=== PATIENT | male | born 1955 | race Caucasian/White ===

== ENCOUNTER → 2016-09-24 | Outpatient (CLI) | payer OTHER ==
[2015-11-14 20:58] VITALS: BP 146/68
[2016-09-24 09:21] LABS: BASOPHILS % (AUTO) 0.6 % (0.2-1.0); EOSINOPHILS # (AUTO) 0.1 x10^3/uL (0.0-0.2); EOSINOPHILS % (AUTO) 2.6 % (0.9-2.9); HEMATOCRIT 36.7 % (42.0-54.0); HEMOGLOBIN 12.4 g/dL (13.5-18.0); LYMPHOCYTES # (AUTO) 1.3 X10^3/uL (1.3-2.9); LYMPHOCYTES % (AUTO) 23.1 % (21.0-51.0); MEAN CORPUSCULAR HEMOGLOBIN 28.1 pg (27.0-34.0); MEAN CORPUSCULAR HGB CONC 33.8 g/dL (33.0-35.0); MEAN CORPUSCULAR VOLUME 83.1 fL (80.0-100.0); MEAN PLATELET VOLUME 7.6 fL (7.4-11.0); MONOCYTES # (AUTO) 0.4 x10^3/uL (0.3-0.8); MONOCYTES % (AUTO) 7.9 % (0.0-13.0); NEUTROPHILS # (AUTO) 3.6 x10^3/uL (2.2-4.8); NEUTROPHILS % (AUTO) 65.8 % (42.0-75.0); PLATELET COUNT 133 X10^3/uL (150.0-450.0); RED BLOOD COUNT 4.41 X10^6/uL (4.7-6.0); RED CELL DISTRIBUTION WIDTH 14.4 % (11.6-16.5); WHITE BLOOD COUNT 5.5 X10^3/uL (3.6-10.0)
[2016-09-24 09:24] LABS: BLOOD UREA NITROGEN 20 mg/dL (7-18); CHLORIDE 106 mmol/L (98-107); COR NA(FOR HYPERGLY) 141 mmol/L (136-145); CREATININE 1.14 mg/dL (0.70-1.30); GLUCOSE 113 mg/dL (65-99); SODIUM 141 mmol/L (136-145); eGFR BLACK RACES > 60 (>60); eGFR NON BLACK RACES > 60 (>60)
== END ==
LOC: LAB 08:45
PROVIDERS: ATTEND Internal Medicine Cardiovascular Disease
DX: Z79.01 Long term (current) use of anticoagulants (principal); Z51.81 Encounter for therapeutic drug level monitoring
CPT/HCPCS: 36415; 80048; 85025

== ENCOUNTER 2018-05-26 13:48 | Inpatient (IN) ==
--- NOTE | 2018-05-26 14:58 | DR.N/VMALE ---
HPI Time Seen Time Seen by Provider: 05/26/18 14:51 Primary Care Physician Primary Care Physician: CRYSTAL Complaints Chief Complaint:: PT THINKS HE IS GOING ON AND OFF A FIB FOR THE LAST COUPLE OF DAYS. HE STATED THAT STRESS AND C PAP CAUSED THIS TO HAPPEN. HE STATED THAT HE FEELS FINE RIGHT NOW AND NOT LIKE HE IS IN AFIB. Source History Provided: Patient Mode of Arrival Mode of Arrival: Ambulatory Timing Onset of Chief Complaint: 05/26/18 PMH PMH Past Medical History: Yes Past Medical History: COPD, Coronary Artery Disease and [place] Past Medical History Comment: A FIB Past Surgical History: Yes Surgical History: Angioplasty/Stents and Cholecystectomy Family History History of Family Medical Conditions: Yes Family Medical History: [place] Social History Does patient currently use any type of tobacco product: No Have you used tobacco products in the last 12 months: No Type of Tobacco Use: None Does any household member use tobacco: No Alcohol Use: None Do you use any recreational Drugs:: No Lives With: Family Lives Where: Home infectious screening In the last 2 months have you had wt loss of >10#?: NO Have you had fever, night sweats or hemotysis?: No Have you traveled outside the country in the last 6 months?: No Isolation: Standard PE Vital Signs Vitals: Temperature 98.7 F Pulse Rate [Apical] 99 Pulse Rate 105 Respiratory Rate 20 Blood Pressure [Right Arm] 110/70 Blood Pressure [Left Arm] 106/55 Blood Pressure 137/60 O2 Sat by Pulse Oximetry 95 ROR Labs Reviewed Result Diagrams: 05/26/18 15:34 05/26/18 15:34 Laboratory: WBC 7.3 X10^3/uL (3.6-10.0) 05/26/18 15:34 RBC 4.49 X10^6/uL (4.7-6.0) L 05/26/18 15:34 Hgb 13.1 g/dL (13.5-18.0) L 05/26/18 15:34 Hct 37.5 % (42.0-54.0) L 05/26/18 15:34 MCV 83.5 fL (80.0-100.0) 05/26/18 15:34 MCH 29.3 pg (27.0-34.0) 05/26/18 15:34 MCHC 35.1 g/dL (33.0-35.0) H 05/26/18 15:34 RDW 14.7 % (11.6-16.5) 05/26/18 15:34 Plt Count 187 X10^3/uL (150.0-450.0) 05/26/18 15:34 MPV 7.4 fL (7.4-11.0) 05/26/18 15:34 Neut % (Auto) 65.4 % (42.0-75.0) 05/26/18 15:34 Lymph % (Auto) 24.6 % (21.0-51.0) 05/26/18 15:34 [place] % (Auto) 8.5 % (0.0-13.0) 05/26/18 15:34 Eos % (Auto) 1.1 % (0.9-2.9) 05/26/18 15:34 Baso % (Auto) 0.4 % (0.2-1.0) 05/26/18 15:34 Neut # (Auto) 4.8 x10^3/uL (2.2-4.8) 05/26/18 15:34 Lymph # (Auto) 1.8 X10^3/uL (1.3-2.9) 05/26/18 15:34 [place] # (Auto) 0.6 x10^3/uL (0.3-0.8) 05/26/18 15:34 Eos # (Auto) 0.1 x10^3/uL (0.0-0.2) 05/26/18 15:34 Baso # (Auto) 0.0 X10^3/uL (0.0-0.1) 05/26/18 15:34 Absolute Nucleated RBC 0.1 /100WBC 05/26/18 15:34 Sodium 139 mmol/L (136-145) 05/26/18 15:34 Corrected Sodium 139 mmol/L (136-145) 05/26/18 15:34 Potassium 4.5 mmol/L (3.5-5.1) 05/26/18 15:34 Chloride 103 mmol/L (98-107) 05/26/18 15:34 Carbon Dioxide 30.2 mmol/L (21-32) 05/26/18 15:34 BUN 29 mg/dL (7-18) H 05/26/18 15:34 Creatinine 1.24 mg/dL (0.70-1.30) 05/26/18 15:34 Est GFR (MDRD) Af Amer > 60 (>60) 05/26/18 15:34 Est GFR (MDRD) Non-Af > 60 (>60) 05/26/18 15:34 Glucose 112 mg/dL (65-99) H 05/26/18 15:34 Lactic Acid 0.7 mmol/L (0.4-2.0) 05/26/18 18:12 Calcium 9.2 mg/dL (8.5-10.1) 05/26/18 15:34 Corrected Calcium TNP 05/26/18 15:34 Magnesium 1.9 mg/dL (1.7-2.9) 05/26/18 15:34 Total Bilirubin 0.70 mg/dL (0.2-1.0) 05/26/18 15:34 AST 13 Units/L (15-37) L 05/26/18 15:34 ALT 25 Units/L (12-78) 05/26/18 15:34 Alkaline Phosphatase 50 Units/L (46-116) 05/26/18 15:34 Creatine Kinase 82 Units/L (39-308) 05/26/18 15:34 CK-MB (CK-2) 1.9 ng/mL (0-4.0) 05/26/18 15:34 CK/CKMB % Calc 2.3 % (<4) 05/26/18 15:34 Troponin I < 0.02 ng/mL (0-1.5) 05/26/18 15:34 Total Protein 6.6 g/dL (6.4-8.2) 05/26/18 15:34 Albumin 3.7 g/dL (3.4-5.0) 05/26/18 15:34 Globulin 2.9 g/dL (2.5-4.5) 05/26/18 15:34 Albumin/Globulin Ratio 1.3 Ratio (1.1-2.1) 05/26/18 15:34
[2018-05-26 15:43] LABS: BASOPHILS % (AUTO) 0.4 % (0.2-1.0); EOSINOPHILS # (AUTO) 0.1 x10^3/uL (0.0-0.2); EOSINOPHILS % (AUTO) 1.1 % (0.9-2.9); HEMATOCRIT 37.5 % (42.0-54.0); HEMOGLOBIN 13.1 g/dL (13.5-18.0); LYMPHOCYTES # (AUTO) 1.8 X10^3/uL (1.3-2.9); LYMPHOCYTES % (AUTO) 24.6 % (21.0-51.0); MEAN CORPUSCULAR HEMOGLOBIN 29.3 pg (27.0-34.0); MEAN CORPUSCULAR HGB CONC 35.1 g/dL (33.0-35.0); MEAN CORPUSCULAR VOLUME 83.5 fL (80.0-100.0); MEAN PLATELET VOLUME 7.4 fL (7.4-11.0); MONOCYTES # (AUTO) 0.6 x10^3/uL (0.3-0.8); MONOCYTES % (AUTO) 8.5 % (0.0-13.0); NEUTROPHILS # (AUTO) 4.8 x10^3/uL (2.2-4.8); NEUTROPHILS % (AUTO) 65.4 % (42.0-75.0); PLATELET COUNT 187 X10^3/uL (150.0-450.0); RED BLOOD COUNT 4.49 X10^6/uL (4.7-6.0); RED CELL DISTRIBUTION WIDTH 14.7 % (11.6-16.5); WHITE BLOOD COUNT 7.3 X10^3/uL (3.6-10.0)
--- NOTE | 2018-05-26 15:46 | RAD ---
Exam: Portable chest History: 62-year-old male with atrial fibrillation. Comparison: Previous chest radiograph from 10/29/2013 Findings: Generalized cardiomegaly is seen. Mild vascular prominence is noted as well. Cardiac pacer is in place. Patchy opacity at the right base and lateral aspect of the right mid lung may represent developing infiltrates. Left basilar atelectasis/infiltrate is seen as well. No significant effusion on either side. Bony thorax is unremarkable. Impression: 1. Cardiomegaly with mild vascular prominence. 2. Possible right basilar and right lateral mid lung infiltrates. 3. Left basilar atelectasis/infiltrate noted as well Reported By:
[2018-05-26 16:10] LABS: BLOOD UREA NITROGEN 29 mg/dL (7-18); CALCIUM 9.2 mg/dL (8.5-10.1); CARBON DIOXIDE 30.2 mmol/L (21-32); CHLORIDE 103 mmol/L (98-107); COR NA(FOR HYPERGLY) 139 mmol/L (136-145); CREATININE 1.24 mg/dL (0.70-1.30); SODIUM 139 mmol/L (136-145); TROPONIN I < 0.02 ng/mL (0-1.5); eGFR NON BLACK RACES > 60 (>60)
[2018-05-26 16:14] LABS: ALANINE AMINOTRANSFERASE 25 Units/L (12-78); ALBUMIN 3.7 g/dL (3.4-5.0); ALKALINE PHOSPHATASE 50 Units/L (46-116); ASPARTATE AMINO TRANSFERASE 13 Units/L (15-37); CKMB % 2.3 % (<4); CREATINE KINASE 82 Units/L (39-308); CREATINE KINASE MB 1.9 ng/mL (0-4.0); MAGNESIUM 1.9 mg/dL (1.7-2.9); TOTAL PROTEIN 6.6 g/dL (6.4-8.2)
[2018-05-26] MEDS ORDERED: ROCEPHIN VIAL 1 GRAM IVP ONE (17:59)
[2018-05-26] MEDS ORDERED: SALINE 3% 15 ML NEB TX NEB ONE (18:00)
[2018-05-26] MEDS ORDERED: ROCEPHIN VIAL 1 GRAM ONE (18:06)
[2018-05-26] MEDS ORDERED: SALINE 3% 15 ML NEB TX ONE (18:06)
[2018-05-26] MEDS ORDERED: NS 1000 ML 1,000 ML ONE (19:59)
[2018-05-26] MEDS: NS 1000 ML 1,000 ML IV SCH (20:07)
[2018-05-26] MEDS ORDERED: NORCO 10/325 TAB PO PRN (20:45)
[2018-05-26 23:43] LABS: CKMB % 2.5 % (<4); CREATINE KINASE 63 Units/L (39-308); CREATINE KINASE MB 1.6 ng/mL (0-4.0); TROPONIN I < 0.02 ng/mL (0-1.5)
[2018-05-27] MEDS: XOPENEX 1.25 MG/3 ML NEBULE NEB SCH ×5 (00:03→17:44)
[2018-05-27 05:21] LABS: BASOPHILS % (AUTO) 0.4 % (0.2-1.0); EOSINOPHILS # (AUTO) 0.1 x10^3/uL (0.0-0.2); EOSINOPHILS % (AUTO) 1.2 % (0.9-2.9); HEMATOCRIT 36.4 % (42.0-54.0); HEMOGLOBIN 12.8 g/dL (13.5-18.0); LYMPHOCYTES # (AUTO) 2.3 X10^3/uL (1.3-2.9); LYMPHOCYTES % (AUTO) 29.8 % (21.0-51.0); MEAN CORPUSCULAR HEMOGLOBIN 29.5 pg (27.0-34.0); MEAN CORPUSCULAR HGB CONC 35.1 g/dL (33.0-35.0); MEAN PLATELET VOLUME 7.9 fL (7.4-11.0); MONOCYTES # (AUTO) 0.7 x10^3/uL (0.3-0.8); MONOCYTES % (AUTO) 9.3 % (0.0-13.0); NEUTROPHILS # (AUTO) 4.6 x10^3/uL (2.2-4.8); NEUTROPHILS % (AUTO) 59.3 % (42.0-75.0); PLATELET COUNT 183 X10^3/uL (150.0-450.0); RED BLOOD COUNT 4.33 X10^6/uL (4.7-6.0); RED CELL DISTRIBUTION WIDTH 14.7 % (11.6-16.5); WHITE BLOOD COUNT 7.7 X10^3/uL (3.6-10.0)
[2018-05-27 05:38] LABS: ALANINE AMINOTRANSFERASE 21 Units/L (12-78); ALBUMIN 3.4 g/dL (3.4-5.0); ALKALINE PHOSPHATASE 48 Units/L (46-116); ASPARTATE AMINO TRANSFERASE 13 Units/L (15-37); BLOOD UREA NITROGEN 22 mg/dL (7-18); CALCIUM 8.7 mg/dL (8.5-10.1); CHLORIDE 104 mmol/L (98-107); COR NA(FOR HYPERGLY) 141 mmol/L (136-145); CREATININE 1.01 mg/dL (0.70-1.30); SODIUM 140 mmol/L (136-145); TOTAL PROTEIN 6.1 g/dL (6.4-8.2); eGFR NON BLACK RACES > 60 (>60)
[2018-05-27 06:00] LABS: CKMB % 2.5 % (<4); CREATINE KINASE 53 Units/L (39-308); CREATINE KINASE MB 1.3 ng/mL (0-4.0); TROPONIN I < 0.02 ng/mL (0-1.5)
[2018-05-27] MEDS: ROCEPHIN VIAL 1 GRAM IVP SCH (08:44)
--- NOTE | 2018-05-27 09:56 | RAD ---
Examination: PA chest with abdomen series, four views History: Pain Comparison reference: Abdomen CT 11/04/2017 Findings: Chest exam demonstrates cardiomegaly with pacemaker and no evidence for pulmonary consolidation or subdiaphragmatic air. Supine and upright views of abdomen demonstrate nonobstructive colon distention. No small bowel dilatation is noted and there is no evidence for mass or ascites. Right upper quadrant surgical clips consistent with cholecystectomy. Impression: Mild nonobstructive colon distention. Essentially negative otherwise. Reported By:
[2018-05-27] MEDS: ROBITUSSIN DM PO SCH ×4 (11:06→20:57)
[2018-05-27] MEDS: ZITHROMAX INJ 500 MG VIAL 500 MG in NS 250 ML IV 250 ML IV SCH ×2 (11:07→11:13)
[2018-05-27] MEDS: BENTYL CAP 10 MG PO SCH ×3 (11:07→20:57)
[2018-05-27] MEDS: PROTONIX INJ 40 MG VIAL IVP SCH (11:07)
[2018-05-27] MEDS: MUCOMYST 20% 200 MG/ML NEB SCH ×3 (11:27→17:44)
--- NOTE | 2018-05-27 14:50 | DR.H&P ---
H&P - History & Physical for Day of: H&P Date: 05/26/18 - Chief Complaint Chief Complaint: "AFIB" N/V - History of Present Illness History of Present Illness: 62 WM ER ADMISSION WITH CO " GOING INTO AFIB". PT STATES HE CAN FELT PALPITATION LIKE HE IS IN AFIB. PT HAS PMH OF HTN. PT HAD CXR ON ADMISSION WITH FINDINGS OF PNEUMONIA. PT STATES HE HAD CONGESTION ONE WEEK AGO AND HAD ROCEPHIN INJECTION X 1. PT CO UPPER ABDOMINAL PAIN WITH N/V. PT ADMITTED FOR SERIAL CE AND TREATMENT OF PNEUMONIA. - Past Medical History Past Medical History: [place], Coronary Artery Disease, COPD - Past Surgical History Surgical History: Angioplasty/Stents, Cholecystectomy - Family History Family Medical History: [place] - Social History Does patient currently use any type of tobacco product: No Have you used tobacco products in the last 12 months: No Type of Tobacco Use: Cigarettes How many years tobacco product used: 35 Does any household member use tobacco: No Alcohol Use: None Drug Use: None - Medications Home Medications: prednisone Allergy (Verified 05/26/18 15:30) CONTINUE taking the following medications bupropion HCl 300 mg PO DAILY 05/26/18 [History] clonazepam 1 tab PO BID 05/26/18 [History] dabigatran etexilate [Pradaxa] 1 tab PO BID 05/26/18 [History] dicyclomine 1 tab PO TID PRN 05/26/18 [History] ferrous sulfate [iron] 65 mg PO DAILY 05/26/18 [History] fluticasone 1 spray INTRANASAL BID 05/26/18 [History] hydrocodone-acetaminophen 1 tab PO QID PRN 05/26/18 [History] lisinopril 1 tab PO BID 05/26/18 [History] meclizine 1 tab PO TID PRN 05/26/18 [History] morphine 1 tab PO BID 05/26/18 [History] nitroglycerin [Nitrostat] 1 tab SUBLINGUAL DIRECTED 05/26/18 [History] omega 6-orh-ddw-fish oil [Fish Oil] 1,000 mg PO BID 05/26/18 [History] sotalol 1 tab PO BID 05/26/18 [History] - Review of Systems Constitutional: No Symptoms Reported Eyes: No Symptoms Reported ENT: No Symptoms Reported Respiratory: Cough Cardiovascular: Chest Pain, Palpitations Gastrointestinal: Nausea, Vomiting Genitourinary: No Symptoms Reported Musculoskeletal: No Symptoms Reported Skin: No Symptoms Reported Neurological: No Symptoms Reported - Physical Exam Vital Signs: Temperature 98.8 F Pulse Rate [Apical] 98 Pulse Rate 71 Respiratory Rate 20 Blood Pressure [Right Arm] 103/59 Blood Pressure [Left Arm] 106/55 Blood Pressure 137/60 O2 Sat by Pulse Oximetry 100 Oriented: Normal Eyes: Normal Ear: Normal Nose: Normal Throat: Normal Respiratory: RLL Diminished, LLL Diminished Cardiovascular: Normal. negative: Murmur, Edema : Normal Auscultation: Bowel Sounds: Normal Palpation: Normal Tenderness: Epigastric, Mild Skin: Normal Musculoskeletal: Normal Psychiatric: Normal Speech Pattern: Clear, Appropriate - Assessment/Plan (1) Pneumonia Status: Acute Plan: ADMIT, SPUTUM CULTURE. IV ATBX, RESP THERAPY, GENTLE HYDRATION. SUPPLEMENTAL O2. VERIFY HOME MEDICATION. ABD SERIES, CXR ON ADMISSION. SERIAL CE AND EKG, BP CONTROL (2) Abdominal pain Status: Acute (3) Cardiac defibrillator in place Status: Chronic (4) Hypertension Status: Chronic (5) History of atrial fibrillation Status: Chronic - Allergies Allergies/Adverse Reactions: Allergies Allergy/AdvReac Type Severity Reaction Status Date / Time prednisone Allergy Verified 05/26/18 15:30
[2018-05-27] MEDS: NS 1000 ML 1,000 ML IV SCH (21:22)
[2018-05-28] MEDS: MUCOMYST 20% 200 MG/ML NEB SCH ×5 (00:29→17:03)
[2018-05-28] MEDS: XOPENEX 1.25 MG/3 ML NEBULE NEB SCH ×5 (00:29→17:03)
[2018-05-28] MEDS: BENTYL CAP 10 MG PO SCH ×3 (04:29→15:28)
[2018-05-28] MEDS: NS 1000 ML 1,000 ML IV SCH ×3 (04:29→11:57)
[2018-05-28 05:16] LABS: BASOPHILS % (AUTO) 0.6 % (0.2-1.0); EOSINOPHILS # (AUTO) 0.1 x10^3/uL (0.0-0.2); EOSINOPHILS % (AUTO) 1.7 % (0.9-2.9); HEMATOCRIT 35.5 % (42.0-54.0); HEMOGLOBIN 12.3 g/dL (13.5-18.0); LYMPHOCYTES % (AUTO) 33.5 % (21.0-51.0); MEAN CORPUSCULAR HEMOGLOBIN 29.3 pg (27.0-34.0); MEAN CORPUSCULAR HGB CONC 34.6 g/dL (33.0-35.0); MEAN CORPUSCULAR VOLUME 84.7 fL (80.0-100.0); MEAN PLATELET VOLUME 7.9 fL (7.4-11.0); MONOCYTES # (AUTO) 0.5 x10^3/uL (0.3-0.8); MONOCYTES % (AUTO) 8.7 % (0.0-13.0); NEUTROPHILS # (AUTO) 3.3 x10^3/uL (2.2-4.8); NEUTROPHILS % (AUTO) 55.5 % (42.0-75.0); PLATELET COUNT 152 X10^3/uL (150.0-450.0); RED BLOOD COUNT 4.19 X10^6/uL (4.7-6.0); RED CELL DISTRIBUTION WIDTH 14.8 % (11.6-16.5); WHITE BLOOD COUNT 5.9 X10^3/uL (3.6-10.0)
[2018-05-28 05:22] LABS: ALANINE AMINOTRANSFERASE 19 Units/L (12-78); ALBUMIN 3.2 g/dL (3.4-5.0); ALKALINE PHOSPHATASE 42 Units/L (46-116); ASPARTATE AMINO TRANSFERASE 13 Units/L (15-37); BLOOD UREA NITROGEN 20 mg/dL (7-18); CALCIUM 8.6 mg/dL (8.5-10.1); CARBON DIOXIDE 26.7 mmol/L (21-32); CHLORIDE 106 mmol/L (98-107); COR CA(FOR HYPOALB) 9.2 mg/dL (8.5-10.1); CREATININE 1.06 mg/dL (0.70-1.30); SODIUM 141 mmol/L (136-145); TOTAL PROTEIN 5.8 g/dL (6.4-8.2); eGFR NON BLACK RACES > 60 (>60)
--- NOTE | 2018-05-28 05:52 | RAD ---
Examination: AP chest History: Pneumonia chest pain Comparison 05/26/2018 Findings: Continued moderate cardiomegaly with stable position of pacing device. There is no evidence for localized pulmonary, hilar or pleural disease. Impression: Cardiac enlargement. No acute pulmonary or pleural lesion demonstrated. Reported By:
[2018-05-28 08:09] VITALS: BMI 34.7
[2018-05-28] MEDS: ROBITUSSIN DM PO SCH ×3 (08:11→17:13)
[2018-05-28] MEDS: ZITHROMAX INJ 500 MG VIAL 500 MG in NS 250 ML IV 250 ML IV SCH (08:12)
[2018-05-28] MEDS: PROTONIX INJ 40 MG VIAL IVP SCH (08:13)
[2018-05-28] MEDS: ROCEPHIN VIAL 1 GRAM IVP SCH (08:13)
[2018-05-28] MEDS ORDERED: COLACE CAP 100 MG PO SCH (09:00)
[2018-05-28] MEDS ORDERED: MILK OF MAGNESIA PO SCH (09:00)
[2018-05-28] MEDS ORDERED: SOTALOL PO SCH (13:45)
[2018-05-28] MEDS ORDERED: PRADAXA PO SCH (14:00)
[2018-05-28 18:05] VITALS: BP 128/59
[2018-05-28] MEDS ORDERED: BETAPACE AF PO SCH (21:00)
== END 2018-05-28 19:10 | disposition short-term general hospital (02) | DRG 308 ==
LOC: ER 13:59 → MED/SURG 19:29
PROVIDERS: ADMIT Internal Medicine; ATTEND Internal Medicine
DX: R94.31 Abnormal electrocardiogram [ECG] [EKG]; I48.91 Unspecified atrial fibrillation; E11.65 Type 2 diabetes mellitus with hyperglycemia; Z95.0 Presence of cardiac pacemaker; R10.84 Generalized abdominal pain; J18.9 Pneumonia, unspecified organism; R07.89 Other chest pain; I51.7 Cardiomegaly; E78.2 Mixed hyperlipidemia
CPT/HCPCS: 36415; 71010; 71045; 74022; 80053; 82550; 82553; 83605; 83735; 84484; 85025; 87040; 87070; 87205; 93005; 94640; 94760; 96365; 96374; 99282; 99284; A4222; C9113; J0456; J0696; J7030; J7050; J7608

== ENCOUNTER 2018-12-02 21:50 | Observation (INO) ==
[2018-12-02 22:46] VITALS: BMI 34.0
[2018-12-02] MEDS ORDERED: PEPCID 20 MG IV PREMIX* 20 MG/50 ML BAG IV ONE (23:25)
[2018-12-02] MEDS ORDERED: DEMEROL INJ IVP ONE (23:25)
[2018-12-02] MEDS ORDERED: ZOFRAN INJ 4 MG VIAL IVP ONE (23:25)
--- NOTE | 2018-12-02 23:29 | DR.ABDMALE ---
HPI Time seen Time Seen by Provider: 12/02/18 23:24 PCP Primary Care Physician: Artur Damico Chief Complaint:: "Serious Stomach Pain." Self Treatment fo Chief Complaint: Taking medications as ordered Mode of arrival Mode of Arrival: Ambulatory Timing Onset of Chief Complaint: 12/02/18 PMH PMH Past Medical History: Yes Past Medical History: COPD, Coronary Artery Disease and [place] Past Surgical History: Yes Surgical History: Angioplasty/Stents and Cholecystectomy Past Surgical History Comment: Hernia repair Family History History of Family Medical Conditions: Yes Family Medical History: [place] Social History Does patient currently use any type of tobacco product: No Have you used tobacco products in the last 12 months: No Type of Tobacco Use: None Does any household member use tobacco: No Do you use any recreational Drugs:: No Lives Where: Home infectious screening In the last 2 months have you had wt loss of >10#?: NO Have you had fever, night sweats or hemotysis?: No Have you traveled outside the country in the last 6 months?: No Isolation: Standard ROS Review of Systems Constitutional: No Symptoms Reported Eyes: No Symptoms Reported ENTM: No Symptoms Reported Respiratoy: No Symptoms Reported Cardiovascular: No Symptoms Reported Gastrointestinal/Abdominal: No Symptoms Reported Genitourinary: No Symptoms Reported Neurological: No Symptoms Reported Musculoskeletal: No Symptoms Reported Integumentary: No Symptoms Reported Hematologic/Lymphatic: No Symptoms Reported Endocrine: No Symptoms Reported Psychiatric: No Symptoms Reported All Other Systems: Reviewed and Negative PE Vital Signs Vital Signs: Temp Pulse Pulse Resp BP BP BP 12/03/18 03:21 20 12/03/18 01:34 62 15 136/62 12/03/18 00:34 64 24 157/70 12/03/18 00:15 20 12/02/18 23:45 24 12/02/18 23:34 98.9 F 61 15 135/65 12/02/18 22:34 98.4 F 64 28 H 148/67 132/79 07/05/18 12:20 117/59 05/28/18 16:00 128/59 10/30/13 10:00 106/55 Pulse Ox 12/03/18 03:21 12/03/18 01:34 97 12/03/18 00:34 95 12/03/18 00:15 12/02/18 23:45 12/02/18 23:34 96 12/02/18 22:34 96 07/05/18 12:20 05/28/18 16:00 10/30/13 10:00 General Limitations: No Limitations General Appearance: Alert and In No Apparent Distress Head Head Exam: Normal Inspection Eyes Eye exam: Normal Appearance ENT ENT Exam: Normal Exam Neck Neck Exam: Normal Inspection Chest Chest Inspection: Normal Inspection Respiratory Respiratory Exam: Normal Lung Sounds Bilat Cardiovascular Cardiovascular Exam: Regular Rate and Normal Rhythm Abdominal Exam Abdominal Exam: Normal Inspection and Normal Bowel Sounds Rectal Rectal Exam: Deferred Back Back Exam: Normal Inspection Extremeties Extremities Exam: Normal Inspection Exam: Male: Deferred Neurologic Neurological Exam: Alert and Oriented X3 Psychiatric Psychiatric Exam: Normal Affect and Normal Mood Skin Skin Exam: Warm, Dry, Intact and Normal Color ROR Labs Reviewed Result Diagrams: 12/02/18 23:30 12/02/18 23:30 Laboratory: WBC 14.2 X10^3/uL (3.6-10.0) H 12/02/18 23:30 RBC 4.99 X10^6/uL (4.7-6.0) 12/02/18 23:30 Hgb 14.4 g/dL (13.5-18.0) 12/02/18 23:30 Hct 42.7 % (42.0-54.0) 12/02/18 23:30 MCV 85.6 fL (80.0-100.0) 12/02/18 23:30 MCH 28.8 pg (27.0-34.0) 12/02/18 23:30 MCHC 33.6 g/dL (33.0-35.0) 12/02/18 23:30 RDW 14.8 % (11.6-16.5) 12/02/18 23:30 Plt Count 188 X10^3/uL (150.0-450.0) 12/02/18 23:30 MPV 7.4 fL (7.4-11.0) 12/02/18 23:30 Neut % (Auto) 88.2 % (42.0-75.0) H 12/02/18 23:30 Lymph % (Auto) 6.8 % (21.0-51.0) L 12/02/18 23:30 [place] % (Auto) 4.5 % (0.0-13.0) 12/02/18 23:30 Eos % (Auto) 0.1 % (0.9-2.9) L 12/02/18 23:30 Baso % (Auto) 0.4 % (0.2-1.0) 12/02/18 23:30 Neut # (Auto) 12.5 x10^3/uL (2.2-4.8) H 12/02/18 23:30 Lymph # (Auto) 1.0 X10^3/uL (1.3-2.9) L 12/02/18 23:30 [place] # (Auto) 0.6 x10^3/uL (0.3-0.8) 12/02/18 23:30 Eos # (Auto) 0.0 x10^3/uL (0.0-0.2) 12/02/18 23:30 Baso # (Auto) 0.1 X10^3/uL (0.0-0.1) 12/02/18 23:30 Absolute Nucleated RBC 0.1 /100WBC 12/02/18 23:30 Sodium 137 mmol/L (136-145) 12/02/18 23:30 Corrected Sodium 138 mmol/L (136-145) 12/02/18 23:30 Potassium 4.7 mmol/L (3.5-5.1) 12/02/18 23:30 Chloride 99 mmol/L (98-107) 12/02/18 23:30 Carbon Dioxide 29.6 mmol/L (21-32) 12/02/18 23:30 BUN 23 mg/dL (7-18) H 12/02/18 23:30 Creatinine 1.21 mg/dL (0.70-1.30) 12/02/18 23:30 Est GFR (MDRD) Af Amer > 60 (>60) 12/02/18 23:30 Est GFR (MDRD) Non-Af > 60 (>60) 12/02/18 23:30 Glucose 138 mg/dL (65-99) H 12/02/18 23:30 Calcium 9.0 mg/dL (8.5-10.1) 12/02/18 23:30 Corrected Calcium TNP 12/02/18 23:30 Total Bilirubin 1.40 mg/dL (0.2-1.0) H 12/02/18 23:30 AST 20 Units/L (15-37) 12/02/18 23:30 ALT 21 Units/L (12-78) 12/02/18 23:30 Alkaline Phosphatase 57 Units/L (46-116) 12/02/18 23:30 Total Protein 7.8 g/dL (6.4-8.2) 12/02/18 23:30 Albumin 4.4 g/dL (3.4-5.0) 12/02/18 23:30 Globulin 3.4 g/dL (2.5-4.5) 12/02/18 23:30 Albumin/Globulin Ratio 1.3 Ratio (1.1-2.1) 12/02/18 23:30 Amylase 33 Units/L (25-115) 12/02/18 23:30 Lipase 105 Units/L (73-393) 12/02/18 23:30 Specimen Type Clean catch urine 12/03/18 02:08 Urine Color Dark yellow (YELLOW) 12/03/18 02:08 Urine Appearance Clear (CLEAR) 12/03/18 02:08 Urine pH 5.0 (5.0 - 8.0) 12/03/18 02:08 Ur Specific [place] 1.020 (1.000-1.030) 12/03/18 02:08 Urine Protein 1+ (NEGATIVE) 12/03/18 02:08 Urine Glucose (UA) Negative (NEGATIVE) 12/03/18 02:08 Urine Ketones Negative (NEGATIVE) 12/03/18 02:08 Urine Occult Blood 1+ (NEGATIVE) 12/03/18 02:08 Urine Nitrite Negative (NEGATIVE) 12/03/18 02:08 Urine Bilirubin Negative (NEGATIVE) 12/03/18 02:08 Urine Urobilinogen 1+ (NORMAL) 12/03/18 02:08 Ur Leukocyte Esterase Negative (NEGATIVE) 12/03/18 02:08 Urine RBC 0-2 /HPF (NONE SEEN) 12/03/18 02:08 Urine WBC None seen /HPF (NONE SEEN) 12/03/18 02:08 Ur Squamous Epith Cells Negative /HPF (NEGATIVE) 12/03/18 02:08 Urine Bacteria Negative /HPF (NEGATIVE) 12/03/18 02:08 Urine Mucus Rare /HPF (NEGATIVE) 12/03/18 02:08 Ur Culture Indicated? No/not indicated 12/03/18 02:08 Opioid Opioid Risk Tool Total: 0 Total Score Risk Category: Low Risk Copyright: Praneeth GOVEA predicting aberrant behaviors
[2018-12-02] MEDS ORDERED: NS 1000 ML 1,000 ML ONE (23:39)
[2018-12-02] MEDS ORDERED: PEPCID 20 MG IV PREMIX* 20 MG/50 ML BAG ONE (23:41)
[2018-12-02] MEDS ORDERED: ZOFRAN INJ 4 MG VIAL ONE (23:42)
[2018-12-02] MEDS ORDERED: DEMEROL INJ ONE (23:43)
[2018-12-02 23:44] LABS: BASOPHILS # (AUTO) 0.1 X10^3/uL (0.0-0.1); BASOPHILS % (AUTO) 0.4 % (0.2-1.0); EOSINOPHILS % (AUTO) 0.1 % (0.9-2.9); HEMATOCRIT 42.7 % (42.0-54.0); HEMOGLOBIN 14.4 g/dL (13.5-18.0); LYMPHOCYTES % (AUTO) 6.8 % (21.0-51.0); MEAN CORPUSCULAR HEMOGLOBIN 28.8 pg (27.0-34.0); MEAN CORPUSCULAR HGB CONC 33.6 g/dL (33.0-35.0); MEAN CORPUSCULAR VOLUME 85.6 fL (80.0-100.0); MEAN PLATELET VOLUME 7.4 fL (7.4-11.0); MONOCYTES # (AUTO) 0.6 x10^3/uL (0.3-0.8); MONOCYTES % (AUTO) 4.5 % (0.0-13.0); NEUTROPHILS # (AUTO) 12.5 x10^3/uL (2.2-4.8); NEUTROPHILS % (AUTO) 88.2 % (42.0-75.0); PLATELET COUNT 188 X10^3/uL (150.0-450.0); RED BLOOD COUNT 4.99 X10^6/uL (4.7-6.0); RED CELL DISTRIBUTION WIDTH 14.8 % (11.6-16.5); WHITE BLOOD COUNT 14.2 X10^3/uL (3.6-10.0)
[2018-12-02] MEDS ORDERED: NS 1000 ML 1,000 ML IV SCH (23:45)
[2018-12-02 23:51] LABS: ALANINE AMINOTRANSFERASE 21 Units/L (12-78); ALBUMIN 4.4 g/dL (3.4-5.0); ALKALINE PHOSPHATASE 57 Units/L (46-116); AMYLASE 33 Units/L (25-115); ASPARTATE AMINO TRANSFERASE 20 Units/L (15-37); BLOOD UREA NITROGEN 23 mg/dL (7-18); CARBON DIOXIDE 29.6 mmol/L (21-32); CHLORIDE 99 mmol/L (98-107); COR NA(FOR HYPERGLY) 138 mmol/L (136-145); CREATININE 1.21 mg/dL (0.70-1.30); LIPASE 105 Units/L (73-393); SODIUM 137 mmol/L (136-145); TOTAL PROTEIN 7.8 g/dL (6.4-8.2); eGFR NON BLACK RACES > 60 (>60)
[2018-12-03 02:15] LABS: BILIRUBIN,URINE NEGATIVE (NEGATIVE); BLOOD/HEMOGLOBIN,URINE 1+ (NEGATIVE); GLUCOSE, URINE NEGATIVE (NEGATIVE); KETONES,URINE NEGATIVE (NEGATIVE); LEUKOCYTE ESTERASE ,URINE NEGATIVE (NEGATIVE); NITRITES,URINE NEGATIVE (NEGATIVE); PROTEIN,URINE 1+ (NEGATIVE); UROBILINOGEN,URINE 1+ (NORMAL)
[2018-12-03 02:24] LABS: APPEARANCE,URINE CLEAR (CLEAR); BACTERIA,URINE NEGATIVE /HPF (NEGATIVE); COLOR,URINE DARK YELLOW (YELLOW); MUCUS,URINE RARE /HPF (NEGATIVE); RBC,URINE 0-2 /HPF (NONE SEEN); SQUAMOUS EPITHELIAL CELL,UR NEGATIVE /HPF (NEGATIVE)
[2018-12-03] MEDS ORDERED: ZOSYN VIAL 3.375 GRAMS 3.375 G in NS 100 ML IV + SPIKE MINIBAG* 100 ML IV ONE (03:04)
[2018-12-03] MEDS ORDERED: NS 100 ML IV + SPIKE MINIBAG* 100 ML ONE ×2 (03:08→15:55)
[2018-12-03] MEDS ORDERED: ZOSYN VIAL 3.375 GRAMS IV ONE ×2 (03:08→15:55)
[2018-12-03] MEDS ORDERED: DEMEROL INJ IVP ONE (03:17)
[2018-12-03] MEDS ORDERED: DEMEROL INJ ONE (03:18)
[2018-12-03] MEDS ORDERED: ZOFRAN INJ 4 MG VIAL IVP ONE (03:47)
[2018-12-03] MEDS ORDERED: MORPHINE SULFATE INJ 2 MG INJ IVP PRN (04:24)
[2018-12-03 04:56] LABS: BASOPHILS # (AUTO) 0.1 X10^3/uL (0.0-0.1); BASOPHILS % (AUTO) 0.4 % (0.2-1.0); EOSINOPHILS % (AUTO) 0.1 % (0.9-2.9); HEMATOCRIT 40.5 % (42.0-54.0); HEMOGLOBIN 13.7 g/dL (13.5-18.0); LYMPHOCYTES # (AUTO) 1.2 X10^3/uL (1.3-2.9); LYMPHOCYTES % (AUTO) 8.1 % (21.0-51.0); MEAN CORPUSCULAR HGB CONC 33.9 g/dL (33.0-35.0); MEAN CORPUSCULAR VOLUME 85.5 fL (80.0-100.0); MEAN PLATELET VOLUME 7.4 fL (7.4-11.0); MONOCYTES % (AUTO) 6.7 % (0.0-13.0); NEUTROPHILS # (AUTO) 12.5 x10^3/uL (2.2-4.8); NEUTROPHILS % (AUTO) 84.7 % (42.0-75.0); PLATELET COUNT 181 X10^3/uL (150.0-450.0); RED BLOOD COUNT 4.74 X10^6/uL (4.7-6.0); RED CELL DISTRIBUTION WIDTH 15.2 % (11.6-16.5); WHITE BLOOD COUNT 14.8 X10^3/uL (3.6-10.0)
[2018-12-03] MEDS ORDERED: NS 1000 ML 1,000 ML IV SCH ×3 (05:00→08:50)
[2018-12-03 05:07] LABS: ALANINE AMINOTRANSFERASE 16 Units/L (12-78); ALBUMIN 3.9 g/dL (3.4-5.0); ALKALINE PHOSPHATASE 48 Units/L (46-116); ASPARTATE AMINO TRANSFERASE 15 Units/L (15-37); BLOOD UREA NITROGEN 22 mg/dL (7-18); CALCIUM 8.7 mg/dL (8.5-10.1); CARBON DIOXIDE 28.5 mmol/L (21-32); CHLORIDE 100 mmol/L (98-107); COR NA(FOR HYPERGLY) 138 mmol/L (136-145); CREATININE 1.21 mg/dL (0.70-1.30); SODIUM 137 mmol/L (136-145); eGFR NON BLACK RACES > 60 (>60)
[2018-12-03] MEDS ORDERED: ZANAFLEX PO PRN (05:17)
[2018-12-03] MEDS ORDERED: ANTIVERT TAB 25 MG PO PRN (05:17)
[2018-12-03] MEDS ORDERED: LASIX PO PRN (05:17)
[2018-12-03 05:33] LABS: BAND NEUTROPHILS % 1 % (0-10); PLATELET MORPHOLOGY COMMENT NORMAL (NORMAL)
[2018-12-03] MEDS ORDERED: IPRATROPIUM ALBUTEROL INH SCH (06:00)
[2018-12-03] MEDS ORDERED: PEPCID TAB 20 MG PO SCH (09:00)
[2018-12-03] MEDS ORDERED: SOTALOL PO SCH (09:00)
[2018-12-03] MEDS ORDERED: MULTIVITAMIN MIN IRON FA VIT K PO SCH (09:00)
[2018-12-03] MEDS ORDERED: NexIUM PO SCH (09:00)
[2018-12-03] MEDS ORDERED: FERROUS SULFATE 65 MG PO SCH (09:00)
[2018-12-03] MEDS ORDERED: SYNTHROID 50 mcg TAB PO SCH (09:00)
[2018-12-03] MEDS ORDERED: OMEGA DHA EPA FISH OIL PO SCH (09:00)
[2018-12-03] MEDS ORDERED: PROVENTIL NEB TX 0.083% 2.5MG/ 3ML NEB ONE (09:25)
[2018-12-03] MEDS ORDERED: PROTONIX INJ 40 MG VIAL ONE (09:39)
[2018-12-03] MEDS ORDERED: LASIX ONE (09:44)
[2018-12-03] MEDS: LASIX IVP ONE ×2 (09:45→12:26)
[2018-12-03] MEDS ORDERED: DECADRON INJ ONE (09:53)
[2018-12-03] MEDS ORDERED: FENTANYL INJ 250 mcg ONE (09:53)
[2018-12-03] MEDS ORDERED: AMIDATE INJ 40 MG VIAL ONE (09:53)
[2018-12-03] MEDS ORDERED: LR 1000 ML IV 1,000 ML ONE (10:18)
[2018-12-03] MEDS ORDERED: ANCEF VIAL 1 GRAM IVP ONE (10:20)
[2018-12-03] MEDS ORDERED: ANCEF 1 GRAM IV PREMIX* 1 G/50 ML BAG IV ONE ×2 (10:36→10:53)
[2018-12-03] MEDS ORDERED: BACTROBAN TOPICAL OINT ONE (11:41)
[2018-12-03] MEDS ORDERED: BENADRYL INJ 50 MG VIAL IVP PRN (12:02)
[2018-12-03] MEDS ORDERED: REGLAN INJ 10 MG VIAL IVP PRN (12:02)
[2018-12-03] MEDS ORDERED: PHENERGAN INJ 25 MG IM PRN (12:02)
[2018-12-03] MEDS ORDERED: ZOFRAN INJ 4 MG VIAL IVP PRN (12:02)
[2018-12-03] MEDS ORDERED: DILAUDID INJ IVP PRN (12:02)
--- NOTE | 2018-12-03 12:08 | OR.IMMED ---
Immediate Post-Op Note - Immediate Post-Op Note Pre-Op Diagnosis: acute appendicitis . abdominal adhesions . Post-Op Diagnosis: acute appedicitis with extensive adhesions from previous RLQ surgeries . Procedure: diagnostic laparoscopy , lysis of adhesions , lapappendectomy and drainage . Surgeon/Aging Department Supervisor: kaylee Specimens Removed: appendix Drains: Tone Mcdonald Complications: no complications Condition: Stable Final Diagnosis: as above
[2018-12-03] MEDS ORDERED: DILAUDID INJ ONE ×2 (12:12→16:32)
[2018-12-03] MEDS: DILAUDID INJ IVP PRN ×3 (12:16→21:28)
[2018-12-03] MEDS ORDERED: SUPRANE ONE (12:18)
[2018-12-03] MEDS ORDERED: QUELICIN (OR ANECTINE) ONE (12:18)
[2018-12-03] MEDS ORDERED: VERSED ONE (12:18)
[2018-12-03] MEDS ORDERED: NORCURON INJ 10 MG VIAL ONE (12:18)
[2018-12-03] MEDS ORDERED: ZOFRAN INJ 4 MG VIAL ONE ×2 (12:18→12:55)
[2018-12-03] MEDS ORDERED: NEOSTIGMINE INJ ONE (12:18)
[2018-12-03] MEDS ORDERED: ROBINUL ONE (12:18)
[2018-12-03] MEDS: ZOFRAN INJ 4 MG VIAL IVP PRN (12:59)
[2018-12-03] MEDS ORDERED: ZOSYN VIAL 3.375 GRAMS IV SCH (14:00)
[2018-12-03] MEDS: KLONOPIN TAB 1 MG PO SCH ×2 (15:08→21:27)
[2018-12-03] MEDS: ALDACTONE TAB 25 MG PO SCH (15:08)
[2018-12-03] MEDS: SINGULAIR TAB 10 MG PO SCH (15:09)
[2018-12-03] MEDS: WELLBUTRIN XL 300 MG (DAILY) PO SCH (15:10)
[2018-12-03] MEDS: ZESTRIL TAB 20 MG PO SCH ×2 (15:10→21:27)
[2018-12-03] MEDS ORDERED: SYNTHROID 50 mcg TAB ONE (15:49)
[2018-12-03] MEDS ORDERED: NS IRRIGATION 3000 ML ONE (15:50)
[2018-12-03] MEDS ORDERED: STERILE WATER IRRIGATION ONE (15:51)
[2018-12-03] MEDS ORDERED: D5 1/2 NS 1000 ML 1,000 ML ONE (15:54)
[2018-12-03] MEDS: ZOSYN VIAL 3.375 GRAMS 3.375 G in NS 100 ML IV + SPIKE MINIBAG* 100 ML IV SCH ×3 (15:59→21:27)
[2018-12-03] MEDS: D5 1/2 NS 1000 ML 1,000 ML IV SCH (16:00)
[2018-12-03] MEDS: FLONASE NASAL SPRAY ENOSTRIL SCH ×2 (17:55→21:26)
[2018-12-03] MEDS ORDERED: ZESTRIL TAB 20 MG ONE (21:19)
[2018-12-03] MEDS: BETAPACE AF PO SCH (21:26)
[2018-12-03] MEDS: LOVAZA PO SCH (21:27)
[2018-12-03] MEDS: LIPITOR TAB 20 MG PO SCH (21:27)
[2018-12-03] MEDS: PEPCID 20 MG IV PREMIX* 20 MG/50 ML BAG IV SCH (21:27)
[2018-12-04] MEDS: D5 1/2 NS 1000 ML 1,000 ML IV SCH ×3 (00:34→21:08)
[2018-12-04] MEDS: ZOSYN VIAL 3.375 GRAMS 3.375 G in NS 100 ML IV + SPIKE MINIBAG* 100 ML IV SCH ×3 (05:37→21:31)
[2018-12-04] MEDS: DILAUDID INJ IVP PRN ×4 (05:38→21:09)
[2018-12-04 06:54] LABS: BASOPHILS % (AUTO) 0.3 % (0.2-1.0); EOSINOPHILS % (AUTO) 0.2 % (0.9-2.9); HEMATOCRIT 35.8 % (42.0-54.0); HEMOGLOBIN 12.3 g/dL (13.5-18.0); LYMPHOCYTES # (AUTO) 1.3 X10^3/uL (1.3-2.9); LYMPHOCYTES % (AUTO) 14.8 % (21.0-51.0); MEAN CORPUSCULAR HEMOGLOBIN 29.1 pg (27.0-34.0); MEAN CORPUSCULAR HGB CONC 34.3 g/dL (33.0-35.0); MEAN CORPUSCULAR VOLUME 84.9 fL (80.0-100.0); MONOCYTES # (AUTO) 0.9 x10^3/uL (0.3-0.8); MONOCYTES % (AUTO) 9.9 % (0.0-13.0); NEUTROPHILS # (AUTO) 6.5 x10^3/uL (2.2-4.8); NEUTROPHILS % (AUTO) 74.8 % (42.0-75.0); PLATELET COUNT 146 X10^3/uL (150.0-450.0); RED BLOOD COUNT 4.21 X10^6/uL (4.7-6.0); RED CELL DISTRIBUTION WIDTH 14.6 % (11.6-16.5); WHITE BLOOD COUNT 8.6 X10^3/uL (3.6-10.0)
[2018-12-04 07:11] LABS: ALANINE AMINOTRANSFERASE 10 Units/L (12-78); ALBUMIN 3.1 g/dL (3.4-5.0); ALKALINE PHOSPHATASE 39 Units/L (46-116); ASPARTATE AMINO TRANSFERASE 13 Units/L (15-37); BLOOD UREA NITROGEN 23 mg/dL (7-18); CALCIUM 8.6 mg/dL (8.5-10.1); CARBON DIOXIDE 30.8 mmol/L (21-32); CHLORIDE 100 mmol/L (98-107); COR CA(FOR HYPOALB) 9.3 mg/dL (8.5-10.1); COR NA(FOR HYPERGLY) 136 mmol/L (136-145); CREATININE 1.31 mg/dL (0.70-1.30); SODIUM 136 mmol/L (136-145); TOTAL PROTEIN 6.3 g/dL (6.4-8.2); eGFR NON BLACK RACES 59 (>60)
[2018-12-04] MEDS ORDERED: ZESTRIL TAB 20 MG ONE ×2 (08:42→20:54)
--- NOTE | 2018-12-04 08:47 | DR.PROGNOT ---
Hospital Progress Notes - Progress Note for Day of: Progress Note Date: 12/04/18 - Chief Complaint Chief Complaint: post op lap appendectomy , lysis of adhesions . doing very well , OOB and tolerating liquid diet . having moderate drainage in [place]HA[place]. - Past Medical Family Social History Past Med/Fam/Surg Hx: No changes since H&P Allergies: Allergies prednisone Allergy (Verified 07/05/18 12:20) - Review Of Systems ROS: No change since H&P - Vital Signs Vital Signs: Temperature 97.7 F Pulse Rate [Apical] 60 Pulse Rate 60 Respiratory Rate 22 Blood Pressure [Right Arm] 154/68 Blood Pressure [Left Arm] 104/54 Blood Pressure 139/67 O2 Sat by Pulse Oximetry 95 - Physical Exam Oriented: Normal Eyes: Normal Ear: Normal Nose: Normal Respiratory: Normal Cardiovascular: Normal : Normal GI:Auscultation: Normal GI: Tenderness: RLQ, Moderate (soft abdomen , BS+) Skin: Normal Mood Description: Calm Speech Pattern: Clear, Appropriate - Laboratory and Diagnostics Result Diagrams: 12/04/18 06:39 12/04/18 06:39 Labs: Laboratory WBC 8.6 X10^3/uL (3.6-10.0) 12/04/18 06:39 RBC 4.21 X10^6/uL (4.7-6.0) L 12/04/18 06:39 Hgb 12.3 g/dL (13.5-18.0) L 12/04/18 06:39 Hct 35.8 % (42.0-54.0) L 12/04/18 06:39 MCV 84.9 fL (80.0-100.0) 12/04/18 06:39 MCH 29.1 pg (27.0-34.0) 12/04/18 06:39 MCHC 34.3 g/dL (33.0-35.0) 12/04/18 06:39 RDW 14.6 % (11.6-16.5) 12/04/18 06:39 Plt Count 146 X10^3/uL (150.0-450.0) L 12/04/18 06:39 Plt Count Comment Adequate (ADEQUATE) 12/03/18 04:50 MPV 7.0 fL (7.4-11.0) L 12/04/18 06:39 Neut % (Auto) 74.8 % (42.0-75.0) 12/04/18 06:39 Lymph % (Auto) 14.8 % (21.0-51.0) L 12/04/18 06:39 [place] % (Auto) 9.9 % (0.0-13.0) 12/04/18 06:39 Eos % (Auto) 0.2 % (0.9-2.9) L 12/04/18 06:39 Baso % (Auto) 0.3 % (0.2-1.0) 12/04/18 06:39 Neut # (Auto) 6.5 x10^3/uL (2.2-4.8) H 12/04/18 06:39 Lymph # (Auto) 1.3 X10^3/uL (1.3-2.9) 12/04/18 06:39 [place] # (Auto) 0.9 x10^3/uL (0.3-0.8) H 12/04/18 06:39 Eos # (Auto) 0.0 x10^3/uL (0.0-0.2) 12/04/18 06:39 Baso # (Auto) 0.0 X10^3/uL (0.0-0.1) 12/04/18 06:39 Absolute Nucleated RBC 0.0 /100WBC 12/04/18 06:39 Total Counted 100 12/03/18 04:50 Neutrophils % (Manual) 80 % (39-76) H 12/03/18 04:50 Band Neutrophils % 1 % (0-10) 12/03/18 04:50 Lymphocytes % (Manual) 9 % (13-43) L 12/03/18 04:50 Monocytes % (Manual) 10 % (4-9) H 12/03/18 04:50 Plt Morphology Comment Normal (NORMAL) 12/03/18 04:50 RBC Morphology Normal (NORMAL) 12/03/18 04:50 INR Target Range - 12/03/18 04:50 INR 1.16 (0.8-1.3) 12/03/18 04:50 APTT 35.6 SECONDS (22.9-36.5) 12/03/18 04:50 PTT Comment - 12/03/18 04:50 Sodium 136 mmol/L (136-145) 12/04/18 06:39 Corrected Sodium 136 mmol/L (136-145) 12/04/18 06:39 Potassium 4.2 mmol/L (3.5-5.1) 12/04/18 06:39 Chloride 100 mmol/L (98-107) 12/04/18 06:39 Carbon Dioxide 30.8 mmol/L (21-32) 12/04/18 06:39 BUN 23 mg/dL (7-18) H 12/04/18 06:39 Creatinine 1.31 mg/dL (0.70-1.30) H 12/04/18 06:39 Est GFR (MDRD) Af Amer > 60 (>60) 12/04/18 06:39 Est GFR (MDRD) Non-Af 59 (>60) 12/04/18 06:39 Glucose 118 mg/dL (65-99) H 12/04/18 06:39 Calcium 8.6 mg/dL (8.5-10.1) 12/04/18 06:39 Corrected Calcium 9.3 mg/dL (8.5-10.1) 12/04/18 06:39 Total Bilirubin 1.40 mg/dL (0.2-1.0) H 12/04/18 06:39 AST 13 Units/L (15-37) L 12/04/18 06:39 ALT 10 Units/L (12-78) L 12/04/18 06:39 Alkaline Phosphatase 39 Units/L (46-116) L 12/04/18 06:39 Total Protein 6.3 g/dL (6.4-8.2) L 12/04/18 06:39 Albumin 3.1 g/dL (3.4-5.0) L 12/04/18 06:39 Globulin 3.2 g/dL (2.5-4.5) 12/04/18 06:39 Albumin/Globulin Ratio 1.0 Ratio (1.1-2.1) L 12/04/18 06:39 Amylase 33 Units/L (25-115) 12/02/18 23:30 Lipase 105 Units/L (73-393) 12/02/18 23:30 Specimen Type Clean catch urine 12/03/18 02:08 Urine Color Dark yellow (YELLOW) 12/03/18 02:08 Urine Appearance Clear (CLEAR) 12/03/18 02:08 Urine pH 5.0 (5.0 - 8.0) 12/03/18 02:08 Ur Specific [place] 1.020 (1.000-1.030) 12/03/18 02:08 Urine Protein 1+ (NEGATIVE) 12/03/18 02:08 Urine Glucose (UA) Negative (NEGATIVE) 12/03/18 02:08 Urine Ketones Negative (NEGATIVE) 12/03/18 02:08 Urine Occult Blood 1+ (NEGATIVE) 12/03/18 02:08 Urine Nitrite Negative (NEGATIVE) 12/03/18 02:08 Urine Bilirubin Negative (NEGATIVE) 12/03/18 02:08 Urine Urobilinogen 1+ (NORMAL) 12/03/18 02:08 Ur Leukocyte Esterase Negative (NEGATIVE) 12/03/18 02:08 Urine RBC 0-2 /HPF (NONE SEEN) 12/03/18 02:08 Urine WBC None seen /HPF (NONE SEEN) 12/03/18 02:08 Ur Squamous Epith Cells Negative /HPF (NEGATIVE) 12/03/18 02:08 Urine Bacteria Negative /HPF (NEGATIVE) 12/03/18 02:08 Urine Mucus Rare /HPF (NEGATIVE) 12/03/18 02:08 Ur Culture Indicated? No/not indicated 12/03/18 02:08 Tissue Pathology To follow 12/03/18 11:30 - Assessment and Plan 1: acute appendicitis . s/p Lap appendectomy . lysis of adhesions . on full liquid diet , same IV ATB ,. OOB . anticoagulant .
[2018-12-04] MEDS: ALDACTONE TAB 25 MG PO SCH (09:08)
[2018-12-04] MEDS: SINGULAIR TAB 10 MG PO SCH (09:08)
[2018-12-04] MEDS: HEMOCYTE-PLUS PO SCH (09:09)
[2018-12-04] MEDS: WELLBUTRIN XL 300 MG (DAILY) PO SCH (09:10)
[2018-12-04] MEDS: LOVAZA PO SCH ×2 (09:10→21:10)
[2018-12-04] MEDS: ZESTRIL TAB 20 MG PO SCH ×2 (09:11→21:11)
[2018-12-04] MEDS: BETAPACE AF PO SCH ×2 (09:11→21:29)
[2018-12-04] MEDS: PEPCID 20 MG IV PREMIX* 20 MG/50 ML BAG IV SCH ×2 (09:11→21:30)
[2018-12-04] MEDS: FLONASE NASAL SPRAY ENOSTRIL SCH ×2 (09:12→21:29)
[2018-12-04] MEDS: PROTONIX INJ 40 MG VIAL IVP SCH (09:13)
[2018-12-04] MEDS: KLONOPIN TAB 1 MG PO SCH ×2 (09:13→21:12)
[2018-12-04] MEDS: DUONEB 0.5 MG/3 MG NEB SCH ×3 (12:11→21:23)
[2018-12-04] MEDS ORDERED: PHARMACY CONSULT - DOSE _____ XX SCH (15:00)
[2018-12-04] MEDS ORDERED: SYNTHROID 50 mcg TAB PO SCH (16:30)
--- NOTE | 2018-12-04 20:15 | PCM.PROG ---
Progress Note - Progress Note for Day of Date of Exam: 12/04/18 - Subjective Subjective: IS DAY ONE STATUS POST APPENDECTOMY. TODAY, HE IS ALERT AND ORIENTED, LYING IN BED ON MORNING ROUNDS. HE CONTINUES WITH ABDOMINAL PAIN. THERE IS A MICHAEL IN PLACE. HIS VITALS THIS MORNING ARE: 98.0-60-24-98%-114/56. LABS WERE OBTAINED. ABNORMAL LAB VALUES INCLUDE THE FOLLOWING: RBC 4.21, HGB 12.3, HCT 35.8, PLT COUNT 146, BUN 23, CREATININE 1.31, GLUCOSE 118, TOTAL BILI 1.40, AST 13, ALT 10, ALK PHOS 39, TOTAL PROTEIN 6.3, ALBUMIN 3.1. HE IS CURRENTLY RECEIVING IV FLUIDS, ZOSYN IV, DILAUDID FOR PAIN CONTROL, AND ZOFRAN FOR NAUSEA. HIS HOME MEDICATIONS WERE RESUMED. WE WILL CONTINUE WITH CURRENT PLAN OF CARE TODAY. OTHERWISE, WE PLAN TO FOLLOW UP WITH AM LABS AND CONTINUE TO MONITOR. - Past Medical Family Social History Past Med/Fam/Surg Hx: No changes since H&P Allergies: Allergies prednisone Allergy (Verified 07/05/18 12:20) - Review of Systems ROS: No change since H&P - Vital Signs and I&O's Vital Signs: Temperature 98.0 F Pulse Rate [Apical] 60 Pulse Rate 60 Respiratory Rate 23 Blood Pressure [Right Arm] 154/68 Blood Pressure [Left Arm] 106/54 Blood Pressure 139/67 O2 Sat by Pulse Oximetry 94 Intake and Output: Intake & Output 12/02/18 12/03/18 12/04/18 12/05/18 11:59 11:59 11:59 11:59 Intake Total 1060 / 1060 2505 / 2505 2017 Output Total 1420 / 1420 1900 / 1900 1145 / 1145 Balance -360 / -360 605 / 605 873 / 873 - Physical Exam Oriented: Normal Eyes: Normal Ear: Normal Nose: Normal Respiratory: Normal Cardiovascular: Normal : Normal Auscultation: Bowel Sounds: Normal Palpation: Normal Tenderness: RLQ, Moderate (soft abdomen , BS+) Skin: Normal Mood Description: Calm Speech Pattern: Clear, Appropriate - Laboratory and Diagnostics Result Diagrams: 12/04/18 06:39 12/04/18 06:39 Labs: Laboratory WBC 8.6 X10^3/uL (3.6-10.0) 12/04/18 06:39 RBC 4.21 X10^6/uL (4.7-6.0) L 12/04/18 06:39 Hgb 12.3 g/dL (13.5-18.0) L 12/04/18 06:39 Hct 35.8 % (42.0-54.0) L 12/04/18 06:39 MCV 84.9 fL (80.0-100.0) 12/04/18 06:39 MCH 29.1 pg (27.0-34.0) 12/04/18 06:39 MCHC 34.3 g/dL (33.0-35.0) 12/04/18 06:39 RDW 14.6 % (11.6-16.5) 12/04/18 06:39 Plt Count 146 X10^3/uL (150.0-450.0) L 12/04/18 06:39 Plt Count Comment Adequate (ADEQUATE) 12/03/18 04:50 MPV 7.0 fL (7.4-11.0) L 12/04/18 06:39 Neut % (Auto) 74.8 % (42.0-75.0) 12/04/18 06:39 Lymph % (Auto) 14.8 % (21.0-51.0) L 12/04/18 06:39 [place] % (Auto) 9.9 % (0.0-13.0) 12/04/18 06:39 Eos % (Auto) 0.2 % (0.9-2.9) L 12/04/18 06:39 Baso % (Auto) 0.3 % (0.2-1.0) 12/04/18 06:39 Neut # (Auto) 6.5 x10^3/uL (2.2-4.8) H 12/04/18 06:39 Lymph # (Auto) 1.3 X10^3/uL (1.3-2.9) 12/04/18 06:39 [place] # (Auto) 0.9 x10^3/uL (0.3-0.8) H 12/04/18 06:39 Eos # (Auto) 0.0 x10^3/uL (0.0-0.2) 12/04/18 06:39 Baso # (Auto) 0.0 X10^3/uL (0.0-0.1) 12/04/18 06:39 Absolute Nucleated RBC 0.0 /100WBC 12/04/18 06:39 Total Counted 100 12/03/18 04:50 Neutrophils % (Manual) 80 % (39-76) H 12/03/18 04:50 Band Neutrophils % 1 % (0-10) 12/03/18 04:50 Lymphocytes % (Manual) 9 % (13-43) L 12/03/18 04:50 Monocytes % (Manual) 10 % (4-9) H 12/03/18 04:50 Plt Morphology Comment Normal (NORMAL) 12/03/18 04:50 RBC Morphology Normal (NORMAL) 12/03/18 04:50 INR Target Range - 12/03/18 04:50 INR 1.16 (0.8-1.3) 12/03/18 04:50 APTT 35.6 SECONDS (22.9-36.5) 12/03/18 04:50 PTT Comment - 12/03/18 04:50 Sodium 136 mmol/L (136-145) 12/04/18 06:39 Corrected Sodium 136 mmol/L (136-145) 12/04/18 06:39 Potassium 4.2 mmol/L (3.5-5.1) 12/04/18 06:39 Chloride 100 mmol/L (98-107) 12/04/18 06:39 Carbon Dioxide 30.8 mmol/L (21-32) 12/04/18 06:39 BUN 23 mg/dL (7-18) H 12/04/18 06:39 Creatinine 1.31 mg/dL (0.70-1.30) H 12/04/18 06:39 Est GFR (MDRD) Af Amer > 60 (>60) 12/04/18 06:39 Est GFR (MDRD) Non-Af 59 (>60) 12/04/18 06:39 Glucose 118 mg/dL (65-99) H 12/04/18 06:39 Calcium 8.6 mg/dL (8.5-10.1) 12/04/18 06:39 Corrected Calcium 9.3 mg/dL (8.5-10.1) 12/04/18 06:39 Total Bilirubin 1.40 mg/dL (0.2-1.0) H 12/04/18 06:39 AST 13 Units/L (15-37) L 12/04/18 06:39 ALT 10 Units/L (12-78) L 12/04/18 06:39 Alkaline Phosphatase 39 Units/L (46-116) L 12/04/18 06:39 Total Protein 6.3 g/dL (6.4-8.2) L 12/04/18 06:39 Albumin 3.1 g/dL (3.4-5.0) L 12/04/18 06:39 Globulin 3.2 g/dL (2.5-4.5) 12/04/18 06:39 Albumin/Globulin Ratio 1.0 Ratio (1.1-2.1) L 12/04/18 06:39 Amylase 33 Units/L (25-115) 12/02/18 23:30 Lipase 105 Units/L (73-393) 12/02/18 23:30 Specimen Type Clean catch urine 12/03/18 02:08 Urine Color Dark yellow (YELLOW) 12/03/18 02:08 Urine Appearance Clear (CLEAR) 12/03/18 02:08 Urine pH 5.0 (5.0 - 8.0) 12/03/18 02:08 Ur Specific [place] 1.020 (1.000-1.030) 12/03/18 02:08 Urine Protein 1+ (NEGATIVE) 12/03/18 02:08 Urine Glucose (UA) Negative (NEGATIVE) 12/03/18 02:08 Urine Ketones Negative (NEGATIVE) 12/03/18 02:08 Urine Occult Blood 1+ (NEGATIVE) 12/03/18 02:08 Urine Nitrite Negative (NEGATIVE) 12/03/18 02:08 Urine Bilirubin Negative (NEGATIVE) 12/03/18 02:08 Urine Urobilinogen 1+ (NORMAL) 12/03/18 02:08 Ur Leukocyte Esterase Negative (NEGATIVE) 12/03/18 02:08 Urine RBC 0-2 /HPF (NONE SEEN) 12/03/18 02:08 Urine WBC None seen /HPF (NONE SEEN) 12/03/18 02:08 Ur Squamous Epith Cells Negative /HPF (NEGATIVE) 12/03/18 02:08 Urine Bacteria Negative /HPF (NEGATIVE) 12/03/18 02:08 Urine Mucus Rare /HPF (NEGATIVE) 12/03/18 02:08 Ur Culture Indicated? No/not indicated 12/03/18 02:08 Tissue Pathology To follow 12/03/18 11:30
[2018-12-04] MEDS: LIPITOR TAB 20 MG PO SCH (21:10)
[2018-12-04] MEDS: ZOFRAN INJ 4 MG VIAL IVP PRN (21:54)
[2018-12-05] MEDS: DILAUDID INJ IVP PRN ×2 (02:31→06:51)
[2018-12-05] MEDS: D5 1/2 NS 1000 ML 1,000 ML IV SCH (05:17)
[2018-12-05] MEDS: ZOSYN VIAL 3.375 GRAMS 3.375 G in NS 100 ML IV + SPIKE MINIBAG* 100 ML IV SCH (05:18)
[2018-12-05 05:55] LABS: BASOPHILS # (AUTO) 0.1 X10^3/uL (0.0-0.1); BASOPHILS % (AUTO) 0.9 % (0.2-1.0); EOSINOPHILS # (AUTO) 0.1 x10^3/uL (0.0-0.2); EOSINOPHILS % (AUTO) 1.4 % (0.9-2.9); HEMATOCRIT 36.9 % (42.0-54.0); HEMOGLOBIN 12.6 g/dL (13.5-18.0); LYMPHOCYTES # (AUTO) 1.7 X10^3/uL (1.3-2.9); LYMPHOCYTES % (AUTO) 23.8 % (21.0-51.0); MEAN CORPUSCULAR VOLUME 85.1 fL (80.0-100.0); MEAN PLATELET VOLUME 7.4 fL (7.4-11.0); MONOCYTES # (AUTO) 0.7 x10^3/uL (0.3-0.8); MONOCYTES % (AUTO) 9.8 % (0.0-13.0); NEUTROPHILS # (AUTO) 4.5 x10^3/uL (2.2-4.8); NEUTROPHILS % (AUTO) 64.1 % (42.0-75.0); PLATELET COUNT 159 X10^3/uL (150.0-450.0); RED BLOOD COUNT 4.34 X10^6/uL (4.7-6.0); RED CELL DISTRIBUTION WIDTH 14.6 % (11.6-16.5)
[2018-12-05 06:09] LABS: ALANINE AMINOTRANSFERASE 13 Units/L (12-78); ALBUMIN 3.2 g/dL (3.4-5.0); ALKALINE PHOSPHATASE 36 Units/L (46-116); ASPARTATE AMINO TRANSFERASE 12 Units/L (15-37); BLOOD UREA NITROGEN 20 mg/dL (7-18); CALCIUM 8.8 mg/dL (8.5-10.1); CARBON DIOXIDE 31.9 mmol/L (21-32); CHLORIDE 102 mmol/L (98-107); COR CA(FOR HYPOALB) 9.4 mg/dL (8.5-10.1); CREATININE 1.22 mg/dL (0.70-1.30); SODIUM 138 mmol/L (136-145); TOTAL PROTEIN 6.6 g/dL (6.4-8.2); eGFR NON BLACK RACES > 60 (>60)
[2018-12-05] MEDS ORDERED: ZESTRIL TAB 20 MG ONE (08:11)
[2018-12-05] MEDS: PEPCID 20 MG IV PREMIX* 20 MG/50 ML BAG IV SCH (08:16)
[2018-12-05] MEDS: PROTONIX INJ 40 MG VIAL IVP SCH (08:16)
[2018-12-05] MEDS: HEMOCYTE-PLUS PO SCH (08:16)
[2018-12-05] MEDS: WELLBUTRIN XL 300 MG (DAILY) PO SCH (08:17)
[2018-12-05] MEDS: LOVAZA PO SCH (08:17)
[2018-12-05] MEDS: ALDACTONE TAB 25 MG PO SCH (08:17)
[2018-12-05] MEDS: SINGULAIR TAB 10 MG PO SCH (08:17)
[2018-12-05] MEDS: BETAPACE AF PO SCH (08:17)
[2018-12-05] MEDS: ZESTRIL TAB 20 MG PO SCH (08:17)
[2018-12-05] MEDS: KLONOPIN TAB 1 MG PO SCH (08:18)
[2018-12-05] MEDS: FLONASE NASAL SPRAY ENOSTRIL SCH (08:18)
--- NOTE | 2018-12-05 09:18 | DR.PROGNOT ---
Hospital Progress Notes - Progress Note for Day of: Progress Note Date: 12/05/18 - Chief Complaint Chief Complaint: post op lap appendectomy ,. tolerating diet well . ambulatory ,. MICHAEL was removed and all dressings were changed . - Past Medical Family Social History Past Med/Fam/Surg Hx: No changes since H&P Allergies: Allergies prednisone Allergy (Verified 07/05/18 12:20) - Review Of Systems ROS: No change since H&P - Vital Signs Vital Signs: Temperature 97 F Pulse Rate [Apical] 60 Pulse Rate 60 Respiratory Rate 17 Blood Pressure [Right Arm] 154/68 Blood Pressure [Left Arm] 116/55 Blood Pressure 139/67 O2 Sat by Pulse Oximetry 95 - Physical Exam Oriented: Normal Eyes: Normal Ear: Normal Nose: Normal Respiratory: Normal Cardiovascular: Normal : Normal GI:Auscultation: Normal GI:Palpation: Normal GI: Tenderness: RLQ, Moderate (soft abdomen , BS+) Skin: Normal Mood Description: Calm Speech Pattern: Clear, Appropriate - Laboratory and Diagnostics Result Diagrams: 12/05/18 05:30 12/05/18 05:30 Labs: Laboratory WBC 7.0 X10^3/uL (3.6-10.0) 12/05/18 05:30 RBC 4.34 X10^6/uL (4.7-6.0) L 12/05/18 05:30 Hgb 12.6 g/dL (13.5-18.0) L 12/05/18 05:30 Hct 36.9 % (42.0-54.0) L 12/05/18 05:30 MCV 85.1 fL (80.0-100.0) 12/05/18 05:30 MCH 29.0 pg (27.0-34.0) 12/05/18 05:30 MCHC 34.0 g/dL (33.0-35.0) 12/05/18 05:30 RDW 14.6 % (11.6-16.5) 12/05/18 05:30 Plt Count 159 X10^3/uL (150.0-450.0) 12/05/18 05:30 Plt Count Comment Adequate (ADEQUATE) 12/03/18 04:50 MPV 7.4 fL (7.4-11.0) 12/05/18 05:30 Neut % (Auto) 64.1 % (42.0-75.0) 12/05/18 05:30 Lymph % (Auto) 23.8 % (21.0-51.0) 12/05/18 05:30 [place] % (Auto) 9.8 % (0.0-13.0) 12/05/18 05:30 Eos % (Auto) 1.4 % (0.9-2.9) 12/05/18 05:30 Baso % (Auto) 0.9 % (0.2-1.0) 12/05/18 05:30 Neut # (Auto) 4.5 x10^3/uL (2.2-4.8) 12/05/18 05:30 Lymph # (Auto) 1.7 X10^3/uL (1.3-2.9) 12/05/18 05:30 [place] # (Auto) 0.7 x10^3/uL (0.3-0.8) 12/05/18 05:30 Eos # (Auto) 0.1 x10^3/uL (0.0-0.2) 12/05/18 05:30 Baso # (Auto) 0.1 X10^3/uL (0.0-0.1) 12/05/18 05:30 Absolute Nucleated RBC 0.0 /100WBC 12/05/18 05:30 Total Counted 100 12/03/18 04:50 Neutrophils % (Manual) 80 % (39-76) H 12/03/18 04:50 Band Neutrophils % 1 % (0-10) 12/03/18 04:50 Lymphocytes % (Manual) 9 % (13-43) L 12/03/18 04:50 Monocytes % (Manual) 10 % (4-9) H 12/03/18 04:50 Plt Morphology Comment Normal (NORMAL) 12/03/18 04:50 RBC Morphology Normal (NORMAL) 12/03/18 04:50 INR Target Range - 12/03/18 04:50 INR 1.16 (0.8-1.3) 12/03/18 04:50 APTT 35.6 SECONDS (22.9-36.5) 12/03/18 04:50 PTT Comment - 12/03/18 04:50 Sodium 138 mmol/L (136-145) 12/05/18 05:30 Corrected Sodium TNP 12/05/18 05:30 Potassium 4.9 mmol/L (3.5-5.1) 12/05/18 05:30 Chloride 102 mmol/L (98-107) 12/05/18 05:30 Carbon Dioxide 31.9 mmol/L (21-32) 12/05/18 05:30 BUN 20 mg/dL (7-18) H 12/05/18 05:30 Creatinine 1.22 mg/dL (0.70-1.30) 12/05/18 05:30 Est GFR (MDRD) Af Amer > 60 (>60) 12/05/18 05:30 Est GFR (MDRD) Non-Af > 60 (>60) 12/05/18 05:30 Glucose 103 mg/dL (65-99) H 12/05/18 05:30 Calcium 8.8 mg/dL (8.5-10.1) 12/05/18 05:30 Corrected Calcium 9.4 mg/dL (8.5-10.1) 12/05/18 05:30 Total Bilirubin 0.90 mg/dL (0.2-1.0) 12/05/18 05:30 AST 12 Units/L (15-37) L 12/05/18 05:30 ALT 13 Units/L (12-78) 12/05/18 05:30 Alkaline Phosphatase 36 Units/L (46-116) L 12/05/18 05:30 Total Protein 6.6 g/dL (6.4-8.2) 12/05/18 05:30 Albumin 3.2 g/dL (3.4-5.0) L 12/05/18 05:30 Globulin 3.4 g/dL (2.5-4.5) 12/05/18 05:30 Albumin/Globulin Ratio 0.9 Ratio (1.1-2.1) L 12/05/18 05:30 Amylase 33 Units/L (25-115) 12/02/18 23:30 Lipase 105 Units/L (73-393) 12/02/18 23:30 Specimen Type Clean catch urine 12/03/18 02:08 Urine Color Dark yellow (YELLOW) 12/03/18 02:08 Urine Appearance Clear (CLEAR) 12/03/18 02:08 Urine pH 5.0 (5.0 - 8.0) 12/03/18 02:08 Ur Specific [place] 1.020 (1.000-1.030) 12/03/18 02:08 Urine Protein 1+ (NEGATIVE) 12/03/18 02:08 Urine Glucose (UA) Negative (NEGATIVE) 12/03/18 02:08 Urine Ketones Negative (NEGATIVE) 12/03/18 02:08 Urine Occult Blood 1+ (NEGATIVE) 12/03/18 02:08 Urine Nitrite Negative (NEGATIVE) 12/03/18 02:08 Urine Bilirubin Negative (NEGATIVE) 12/03/18 02:08 Urine Urobilinogen 1+ (NORMAL) 12/03/18 02:08 Ur Leukocyte Esterase Negative (NEGATIVE) 12/03/18 02:08 Urine RBC 0-2 /HPF (NONE SEEN) 12/03/18 02:08 Urine WBC None seen /HPF (NONE SEEN) 12/03/18 02:08 Ur Squamous Epith Cells Negative /HPF (NEGATIVE) 12/03/18 02:08 Urine Bacteria Negative /HPF (NEGATIVE) 12/03/18 02:08 Urine Mucus Rare /HPF (NEGATIVE) 12/03/18 02:08 Ur Culture Indicated? No/not indicated 12/03/18 02:08 Tissue Pathology To follow 12/03/18 11:30 - Assessment and Plan 1: acute appendicitis . s/p Lap appendectomy . lysis of adhesions . on soft diet ,. will follow at the office in 10 days .
[2018-12-05] MEDS ORDERED: NORCO 5/325 MG TAB PO PRN (09:23)
[2018-12-05 10:04] VITALS: BP 112/56
== END 2018-12-05 11:55 | disposition home or self-care (01) ==
LOC: ER 22:28 → MED/SURG 22:28 → ICU 12-03 12:23 → OBS 12-04 15:39 → ICU 12-04 15:40
PROVIDERS: ADMIT Obstetrics & Gynecology Obstetrics; ATTEND Internal Medicine
PROC: APPYLAP (ICD-10-PCS; 2018-12-03 10:45)
DX: I48.91 Unspecified atrial fibrillation; Z79.01 Long term (current) use of anticoagulants; R06.02 Shortness of breath; R94.31 Abnormal electrocardiogram [ECG] [EKG]; J44.9 Chronic obstructive pulmonary disease, unspecified; K66.0 Peritoneal adhesions (postprocedural) (postinfection); K35.890 Other acute appendicitis without perforation or gangrene; I50.9 Heart failure, unspecified; Z95.0 Presence of cardiac pacemaker; I25.10 Atherosclerotic heart disease of native coronary artery without angina pectoris
CPT/HCPCS: 36415; 71010; 71045; 74176; 80053; 81001; 82150; 83690; 85025; 85610; 85730; 93005; 94640; 96365; 96367; 96374; 96375; 99284; A4216; A4217; A4222; C9113; S0028; G0378; J0330; J0690; J1100; J1170; J1940; J2175; J2250; J2405; J2543; J2710; J3010; J3490; J7030; J7050; J7120; J7620; S5010